=== PATIENT | male | born 1975 | race Caucasian/White ===

== ENCOUNTER 2017-07-06 09:21 | Outpatient (CLI) | payer BC ==
--- NOTE | 2017-07-06 11:28 | MRI ---
MRI LUMBAR SPINE NONCONTRAST: History: Low back pain. Left leg radiculopathy. FINDINGS: Conus medullaris has a normal appearance. Vertebral body height and alignment are maintained. Bone ma rrow signal is within normal limits. Central canal and neural foramina are widely patent. At the lumbosacral junction, there is desiccation of the intervertebral disc and a small posterior an nular fissure. No focal hernia. IMPRESSION: Degenerative disc changes at the lumbosacral junction. No focal disc herniation or nerve root virgilio dony. POS: JOHN
== END 2017-07-06 09:22 | disposition home or self-care (01) ==
LOC: TBSIIMAG 09:21
PROVIDERS: ATTEND Specialist
DX: M47.27 Other spondylosis with radiculopathy, lumbosacral region (principal)
CPT/HCPCS: 72148